=== PATIENT | female | born 1990 | race Caucasian/White ===

== ENCOUNTER 2017-11-02 17:52 | Emergency (ER) | payer MEDICAID, OTHER ==
[~2017-11-02] VITALS: Ht 170.2 cm; Wt 50.9 kg
[~2017-11-02 17:52] MED LIST: BUPR-94 PO; BUSP5TAB3 PO; CHLO25CA10 PO; CLON-371 PO; CLON-527 PO; CLON2TAB16 PO; DIPH1TAB PO; HYDR-3965 PO; MUPI15CR TP; ONDA4TAB6 PO; PENI500T2 PO; PROM25TA14 PO; SUCR1ORA2 PO; TRAM1TAB PO
[2017-11-02 18:20] VITALS: BP 115/98
== END 2017-11-02 18:31 | disposition left against medical advice (07) ==
LOC: ER 17:52
DX: Z02.89 Encounter for other administrative examinations (principal); Z53.21 Procedure and treatment not carried out due to patient leaving prior to being seen by health care provider
CPT/HCPCS: 71045; 99281

== ENCOUNTER 2018-05-19 13:44 | Emergency (ER) | payer MEDICAID, OTHER ==
[~2018-05-19] VITALS: Ht 172.7 cm; Wt 62.7 kg
[2018-05-19 13:54] VITALS: BP 145/101
[2018-05-19] MEDS ORDERED: ALPRAZolam 0.25mg tablet PO ONE (14:05)
[2018-05-19] MEDS ORDERED: SERT100T PO (14:06)
== END 2018-05-19 14:29 | disposition home or self-care (01) ==
LOC: ER 13:44
DX: F41.9 Anxiety disorder, unspecified (principal); I10 Essential (primary) hypertension; F32.9 Major depressive disorder, single episode, unspecified; Z76.0 Encounter for issue of repeat prescription; Z56.0 Unemployment, unspecified; Z72.89 Other problems related to lifestyle
CPT/HCPCS: 99283

== ENCOUNTER 2019-01-22 09:57 | Emergency (ER) | payer MEDICAID ==
[~2019-01-22] VITALS: Ht 170.2 cm; Wt 61.0 kg
[~2019-01-22 09:57] MED LIST changes: +SERT100T PO
[2019-01-22 09:59] VITALS: BP 129/99
--- NOTE | 2019-01-22 10:20 | NUR ---
is here to try and get a incress in the dose of methadone so she is here to get clearance
== END 2019-01-22 10:49 | disposition home or self-care (01) ==
LOC: ER 09:57
DX: Z00.00 Encounter for general adult medical examination without abnormal findings (principal); I10 Essential (primary) hypertension; F41.9 Anxiety disorder, unspecified; F32.9 Major depressive disorder, single episode, unspecified; F10.99 Alcohol use, unspecified with unspecified alcohol-induced disorder; F12.90 Cannabis use, unspecified, uncomplicated; F15.90 Other stimulant use, unspecified, uncomplicated; Z56.0 Unemployment, unspecified; Z79.899 Other long term (current) drug therapy; Y90.9 Presence of alcohol in blood, level not specified
CPT/HCPCS: 93005; 99283

== ENCOUNTER 2019-02-12 12:15 | Emergency (ER) | payer MEDICAID ==
[~2019-02-12] VITALS: Ht 170.2 cm; Wt 59.1 kg
[2019-02-12] MEDS ORDERED: HYDR-4353 PO (12:25)
[2019-02-12] MEDS ORDERED: AMOX-422 PO (12:25)
[2019-02-12 12:37] VITALS: BP 102/80
[2019-02-12] MEDS ORDERED: sulfamethoxazole/trimethoprim DS (800/160mg) tablet PO ONE (12:50)
[2019-02-12] MEDS ORDERED: SULF1TAB49 PO (12:58)
== END 2019-02-12 13:18 | disposition home or self-care (01) ==
LOC: ER 12:16
DX: L08.89 Other specified local infections of the skin and subcutaneous tissue (principal); H57.89 Other specified disorders of eye and adnexa; I10 Essential (primary) hypertension; F41.9 Anxiety disorder, unspecified; F32.9 Major depressive disorder, single episode, unspecified; F17.200 Nicotine dependence, unspecified, uncomplicated; F12.90 Cannabis use, unspecified, uncomplicated; F11.90 Opioid use, unspecified, uncomplicated; Z56.0 Unemployment, unspecified; Z79.899 Other long term (current) drug therapy
CPT/HCPCS: 99283

== ENCOUNTER 2019-02-17 14:47 | Emergency (ER) | payer MEDICAID ==
[~2019-02-17] VITALS: Ht 170.2 cm; Wt 70.0 kg
[~2019-02-17 14:47] MED LIST changes: +SULF1TAB49 PO
[2019-02-17] MEDS ORDERED: LIDOcaine 1% W/epiNEPHrine 1:200,000 10ml vial IJ ONE (14:55)
[2019-02-17 15:40] LABS: BASOPHILS % (AUTO) 0.6 % (0-1); EOSINOPHILS # (AUTO) 0.1 X10'3 (0-0.9); EOSINOPHILS % (AUTO) 1.3 % (0-6); HEMATOCRIT 38.1 % (35.0-45.0); LYMPHOCYTES # (AUTO) 1.7 X10'3 (1.1-4.8); LYMPHOCYTES % (AUTO) 24.6 % (21-51); MEAN CORPUSCULAR HEMOGLOBIN 31.6 PG (27.0-31.0); MEAN CORPUSCULAR HGB CONC 34.2 g/dL (33.0-36.5); MEAN CORPUSCULAR VOLUME 92.5 FL (78-98); MONOCYTES # (AUTO) 0.4 X10'3 (0-0.9); MONOCYTES % (AUTO) 5.6 % (2-12); NEUTROPHILS # (AUTO) 4.8 X10'3 (1.8-7.7); NEUTROPHILS % (AUTO) 67.9 % (42-75); PLATELET COUNT 187 X10'3 (140-440); RED BLOOD COUNT 4.12 X10'6 (4.20-5.60); RED CELL DISTRIBUTION WIDTH 13.2 % (11.5-14.5)
[2019-02-17 15:53] LABS: ALANINE AMINOTRANSFERASE 45 U/L (12-78); ALBUMIN 3.7 G/DL (3.4-5.0); ALBUMIN/GLOBULIN RATIO 1.1 (1.1-1.5); ALKALINE PHOSPHATASE 103 IU/L (46-116); ANION GAP 8 (8-16); ASPARTATE AMINO TRANSFERASE 37 U/L (10-37); BILIRUBIN,TOTAL 0.3 MG/DL (0.1-1.0); BLOOD UREA NITROGEN 11 MG/DL (7-18); BUN/CREATININE RATIO 13.3 (6.6-38.0); CALCIUM 8.8 MG/DL (8.5-10.1); CHLORIDE 103 MMOL/L (99-107); CREATININE 0.83 MG/DL (0.40-0.90); GLUCOSE 125 MG/DL (70-104); POTASSIUM 4.2 MMOL/L (3.5-5.1); SODIUM 139 MMOL/L (135-145); TOTAL CARBON DIOXIDE 27.7 MMOL/L (24-32); TOTAL PROTEIN 7.1 G/DL (6.4-8.2); eGFR 81 ML/MIN
[2019-02-17] MEDS ORDERED: CefTRIAXone/D5W-Rocephin 1gm 50 ML IV ONE (15:55)
[2019-02-17] MEDS ORDERED: iohexol 300mg/ml 100ml inj. ONE (16:18)
[2019-02-17] MEDS ORDERED: CEPH-572 PO (17:05)
[2019-02-17] MEDS ORDERED: DOXY100C43 PO (17:05)
[2019-02-17] MEDS ORDERED: normal saline 1000ML IV soln IVB ONE (17:10)
[2019-02-17] MEDS ORDERED: vancomycin/NS 1 GM ADD-VANTAGE 250 ML X 1 DOSE IV ONE (17:15)
[2019-02-17 19:33] VITALS: BP 140/86
== END 2019-02-17 19:35 | disposition home or self-care (01) ==
LOC: ER 14:48
DX: L02.01 Cutaneous abscess of face (principal); H57.89 Other specified disorders of eye and adnexa; I10 Essential (primary) hypertension; F41.9 Anxiety disorder, unspecified; F32.9 Major depressive disorder, single episode, unspecified; F12.90 Cannabis use, unspecified, uncomplicated; F11.90 Opioid use, unspecified, uncomplicated; F10.99 Alcohol use, unspecified with unspecified alcohol-induced disorder; Z56.0 Unemployment, unspecified; Z79.899 Other long term (current) drug therapy; Y90.9 Presence of alcohol in blood, level not specified
CPT/HCPCS: 36415; 70487; 80053; 85025; 96365; 96367; 96375; 99284; J0696; J3370; J7030; Q9967; 96366

== ENCOUNTER 2021-05-15 16:36 | Emergency (ER) | payer MEDICAID ==
[~2021-05-15] VITALS: Ht 170.2 cm; Wt 68.0 kg
[~2021-05-15 16:36] MED LIST changes: -CLON2TAB16 PO; +CLON2TAB44 PO; -SULF1TAB49 PO; -TRAM1TAB PO; +TRAM1TAB2 PO
--- NOTE | 2021-05-15 17:30 | NUR ---
Patient reports worsening symptoms from vaginal bacterial infection and recent unprotected sex with vaginal pain.
[2021-05-15] MEDS ORDERED: CefTRIAXone 1000mg IM Kit (w/lidocaine diluent) IM STA (18:19)
[2021-05-15] MEDS ORDERED: azithromycin 250mg tablet PO ONE (18:20)
[2021-05-15 19:31] LABS: URINE HCG NEGATIVE (NEG)
[2021-05-15 19:37] LABS: CLARITY,URINE CLEAR (Clear); COLOR,URINE YELLOW (Yellow); GLUCOSE, URINE NEGATIVE (Neg); KETONES,URINE NEGATIVE (Neg); LEUKOCYTE ESTERASE ,URINE TRACE (Neg); NITRITES, URINE NEGATIVE (Neg); OCCULT BLOOD,URINE NEGATIVE (Neg); PH,URINE 6.5 (4.8-8.0); PROTEIN,URINE NEGATIVE (Neg); UROBILINOGEN,URINE 0.2 E.U/dL (0.2-1.0)
[2021-05-15 19:38] LABS: UA COLLECTION TYPE CLN CATCH MIDSTREAM
[2021-05-15 19:48] LABS: BACTERIA,URINE FEW /HPF (Neg); MUCUS STRANDS FEW /LPF (Neg); RBC,URINE NONE SEEN /HPF (0-2); SQUAMOUS EPITHELIAL CELL,UR FEW /LPF (FEW); WBC,URINE 0-4 /HPF (0-4)
--- NOTE | 2021-05-15 20:11 | NUR ---
Patient is not in the room, looked for patient in the hallways and common areas. Suspected that patient has eloped.
--- NOTE | 2021-05-18 10:35 | NUR ---
PT CALLED REGARDING VISIT ON 05/15/21, NO ANSWER, MSG LEFT TO PLEASE RETURNN CALL
== END 2021-05-15 20:24 | disposition left against medical advice (07) ==
LOC: ER 16:37
DX: Z20.2 Contact with and (suspected) exposure to infections with a predominantly sexual mode of transmission (principal); R30.0 Dysuria; R11.10 Vomiting, unspecified; I10 Essential (primary) hypertension; F41.9 Anxiety disorder, unspecified; F32.A Depression, unspecified; F12.90 Cannabis use, unspecified, uncomplicated; F11.90 Opioid use, unspecified, uncomplicated; Z72.89 Other problems related to lifestyle; Z56.0 Unemployment, unspecified; Z79.899 Other long term (current) drug therapy; Z79.2 Long term (current) use of antibiotics
CPT/HCPCS: 36415; 81001; 81025; 87077; 87088; 87186; 87491; 87591; 96372; 99283; J0696

== ENCOUNTER 2021-06-11 11:32 | Emergency (ER) | payer MEDICAID ==
[~2021-06-11] VITALS: Ht 172.7 cm; Wt 68.0 kg
[2021-06-11 11:42] VITALS: BP 144/100
[2021-06-11] MEDS ORDERED: CLON0.2T PO ×2 (13:38→15:00)
[2021-06-11] MEDS ORDERED: GABA300C PO (13:38)
[2021-06-11] MEDS ORDERED: GABA600T13 PO (15:00)
== END 2021-06-11 15:07 | disposition home or self-care (01) ==
LOC: ER 11:33
DX: F11.20 Opioid dependence, uncomplicated (principal); I10 Essential (primary) hypertension; F41.9 Anxiety disorder, unspecified; F32.9 Major depressive disorder, single episode, unspecified; Z76.0 Encounter for issue of repeat prescription
CPT/HCPCS: 99281